=== PATIENT | male | born 1990 | race Caucasian/White ===

== ENCOUNTER 2022-06-12 22:21 | Inpatient (IN) | payer BC, OTHER, SELFPAY ==
[2022-06-12 22:28] VITALS: BP 144/91; PULSE 57; RESP 16; TEMP 36.6; O2SAT 96; BMI 25.8
[2022-06-12 22:49] LABS: Appearance Urine Clear; Color Urine Yellow; Glucose Urine UA Negative (Negative); Leukocyte Esterase Urine Negative (Negative); Nitrite Urine Negative (Negative); PH 7.5 (5.0-9.0); Specific Gravity - Urine 1.015 (1.005-1.025); Urine Blood Negative (Negative); Urine Ketones Negative (Negative); Urine Protein Negative (Neg-Trace)
--- NOTE | 2022-06-12 22:49 | ED.PSYCH ---
HPI - Psych General Chief Complaint: Psychiatric Symptoms Stated Complaint: SI with Plan Time Seen by Provider: 06/12/22 22:48 Source: patient Mode of arrival: EMS Limitations: no limitations History of Present Illness HPI Narrative: Patient history of depression or any medication a section 12 by [facility] for making suicidal statement endorsing suicidal ideation without plan and intent at this time. Patient girlfriend called crisis for help. Seen by N in community. Patient writing on his left forearm with a knife forget me patient says that he does not have any interest in his life and struggling for some time has not seen at the psychiatrist's and is not on any medication Related Data Home Medications Medication Instructions Recorded Confirmed No Known Home Meds 06/12/22 06/12/22 Allergies Allergy/AdvReac Type Severity Reaction Status Date / Time No Known Allergies Allergy Verified 06/12/22 22:25 Review of Systems Review of Systems: Yes all other systems are reviewed and are negative [facility] Social History Social History Advance Directives: No Advance Directives Information Provided: Yes Physical Exam Vital Signs: Vital Signs: Last Vital Signs Temp 97.8 F 06/12/22 23:06 Pulse 61 06/12/22 23:06 Resp 16 06/12/22 23:06 BP 129/92 H 06/12/22 23:06 Pulse Ox 100 06/12/22 23:06 O2 Del Method 06/12/22 23:06 BMI result Body Mass Index 25.8 Appearance: Alert. Oriented X3. No acute distress. Eyes: PERRLA, No Nystagmus ENT: Pharynx normal. Oral Mucosa moist Neck: Normal inspection. Neck supple. CVS: Normal heart rate and rhythm. Pulses normal. Respiratory: No respiratory distress. Equal air entry bilateral, no wheezing/rales/rhonchi Abdomen: Soft and nontender. Bowel sounds are present, no mass palpable, no CVA tenderness Skin: Skin warm and dry. Normal skin color. Normal skin turgor. Extremities: No lower extremity edema. No calf tenderness psych; looks depressed, suicidal feeling with no plan, no HI, no hallucinations or delusions Neuro: Oriented X 3. No motor deficit. No sensory deficit.No cerebellar signs , cranial nerves II-XII intact MDM - Psych MDM Narrative Medical decision making narrative: Patient seen by crisis in community Section 12 for depression with suicidal ideation for inpatient psych placement Differential Diagnosis Differential diagnosis: Likely suicidal ideation and depression Lab Data Attestation: I reviewed the patient's lab results. Result diagrams: 06/12/22 23:14 06/12/22 22:45 Labs: Lab Results 06/12/22 06/12/22 06/12/22 Range/Units 22:36 22:36 22:36 WBC (4.8-10.8) X10*3/uL RBC (4.60-5.80) X10*6/uL Hgb (14.0-18.0) g/dl Hct (42.0-52.0) % MCV (80.0-98.0) fL MCH (27.0-33.0) pg MCHC (31.0-36.0) g/dl RDW (11.0-16.0) % Plt Count (160-400) X10*3/uL MPV (9.4-12.4) fL Immature Gran % (Auto) (0.0-0.4) % Neut % (Auto) (45-73) % Lymph % (Auto) (20-40) % [place] % (Auto) (2-11) % Eos % (Auto) (0-4) % Baso % (Auto) (0-2) % Lymph # (Auto) (1.2-4.9) X10*3/uL [place] # (Auto) (0.1-1.2) X10*3/uL Eos # (Auto) (0.0-0.4) X10*3/uL Baso # (Auto) (0.0-0.2) X10*3/uL Abs Immat Gran (auto) (0.00-0.03) X10*3/uL Absolute Neuts (auto) (2.0-8.3) x10*3/uL Absolute Nucleated RBC (0.0-0.012) X10*3/uL Nucleated RBC % (auto) (0.0-0.2) /100WBC Sodium (135-145) mmol/L Potassium (3.3-5.1) mmol/L Chloride (96-108) mmol/L Carbon Dioxide (22-29) mmol/L Anion Gap (12-20) BUN (9-16) mg/dL Creatinine (0.5-1.4) mg/dL Estim Creat Clear Calc Estimated GFR Random Glucose (60-115) mg/dL Calcium (8.4-10.2) mg/dL Total Bilirubin (0.0-1.0) mg/dL AST (5-37) U/L ALT (0-40) U/L Alkaline Phosphatase (39-117) U/L Total Protein (6.5-8.0) g/dL Albumin (3.5-5.0) g/dL Urine Color Yellow Urine Appearance Clear Urine pH 7.5 (5.0-9.0) Ur Specific [place] 1.015 (1.005-1.025) Urine Protein Negative (Neg-Trace) mg/dL Urine Glucose (UA) Negative (Negative) mg/dL Urine Ketones Negative (Negative) mg/dL Urine Blood Negative (Negative) Urine Nitrite Negative (Negative) Ur Leukocyte Esterase Negative (Negative) Salicylates (15-30) mg/dL Urine Opiates Screen Not Detected (Not Detect) Urine Fentanyl Screen Not Detected (Not Detect) Acetaminophen (<30) mcg/mL Ur Barbiturates Screen Not Detected (Not Detect) Ur Phencyclidine Scrn Not Detected (Not Detect) Ur Amphetamines Screen Not Detected (Not Detect) U Benzodiazepines Scrn Not Detected (Not Detect) Urine Cocaine Screen Not Detected (Not Detect) U Marijuana (THC) Screen POSITIVE H (Not Detect) Ethyl Alcohol mg/dL COVID-19 (TREVER) Negative (Negative) COVID-19 Clin Com See Note 06/12/22 06/12/22 06/12/22 Range/Units 22:45 22:45 23:14 WBC 6.1 (4.8-10.8) X10*3/uL RBC 4.94 (4.60-5.80) X10*6/uL Hgb 16.2 (14.0-18.0) g/dl Hct 46.4 (42.0-52.0) % MCV 93.9 (80.0-98.0) fL MCH 32.8 (27.0-33.0) pg MCHC 34.9 (31.0-36.0) g/dl RDW 13.2 (11.0-16.0) % Plt Count 322 (160-400) X10*3/uL MPV 9.3 L (9.4-12.4) fL Immature Gran % (Auto) 0.2 (0.0-0.4) % Neut % (Auto) 73.6 H (45-73) % Lymph % (Auto) 15.2 L (20-40) % [place] % (Auto) 9.5 (2-11) % Eos % (Auto) 0.7 (0-4) % Baso % (Auto) 0.8 (0-2) % Lymph # (Auto) 0.9 L (1.2-4.9) X10*3/uL [place] # (Auto) 0.6 (0.1-1.2) X10*3/uL Eos # (Auto) 0.0 (0.0-0.4) X10*3/uL Baso # (Auto) 0.1 (0.0-0.2) X10*3/uL Abs Immat Gran (auto) 0.01 (0.00-0.03) X10*3/uL Absolute Neuts (auto) 4.5 (2.0-8.3) x10*3/uL Absolute Nucleated RBC 0.000 (0.0-0.012) X10*3/uL Nucleated RBC % (auto) 0.0 (0.0-0.2) /100WBC Sodium 140 (135-145) mmol/L Potassium 4.6 (3.3-5.1) mmol/L Chloride 103 (96-108) mmol/L Carbon Dioxide 27 (22-29) mmol/L Anion Gap 15 (12-20) BUN 9 (9-16) mg/dL Creatinine 0.94 (0.5-1.4) mg/dL Estim Creat Clear Calc 112.8 Estimated GFR > 60 Random Glucose 94 (60-115) mg/dL Calcium 9.8 (8.4-10.2) mg/dL Total Bilirubin 0.8 (0.0-1.0) mg/dL AST 18 (5-37) U/L ALT 11 (0-40) U/L Alkaline Phosphatase 61 (39-117) U/L Total Protein 7.8 (6.5-8.0) g/dL Albumin 4.8 (3.5-5.0) g/dL Urine Color Urine Appearance Urine pH (5.0-9.0) Ur Specific [place] (1.005-1.025) Urine Protein (Neg-Trace) mg/dL Urine Glucose (UA) (Negative) mg/dL Urine Ketones (Negative) mg/dL Urine Blood (Negative) Urine Nitrite (Negative) Ur Leukocyte Esterase (Negative) Salicylates < 5.0 L (15-30) mg/dL Urine Opiates Screen (Not Detect) Urine Fentanyl Screen (Not Detect) Acetaminophen < 1 (<30) mcg/mL Ur Barbiturates Screen (Not Detect) Ur Phencyclidine Scrn (Not Detect) Ur Amphetamines Screen (Not Detect) U Benzodiazepines Scrn (Not Detect) Urine Cocaine Screen (Not Detect) U Marijuana (THC) Screen (Not Detect) Ethyl Alcohol < 10 mg/dL COVID-19 (TREVER) (Negative) COVID-19 Clin Com Discharge Plan Discharge Clinical Impression: Suicidal ideation, Depression Patient Disposition: Still a Patient Prescriptions: No Action No Known Home Meds
[2022-06-12 23:01] LABS: COVID-19 Test Negative (Negative)
[2022-06-12 23:06] VITALS: BP 129/92; PULSE 61; RESP 16; TEMP 36.6; O2SAT 100
[2022-06-12 23:07] LABS: Amphetamine Screen Urine Not Detected (Not Detect); Barbiturates, Urine Not Detected (Not Detect); Benzodiazepines Screen Urine Not Detected (Not Detect); Cannabinoid Screen Urine POSITIVE (Not Detect); Cocaine Screen Urine Not Detected (Not Detect); Fentanyl, urine Not Detected (Not Detect); Opiate Screen Urine Not Detected (Not Detect); Phencyclidine Screen Urine Not Detected (Not Detect)
[2022-06-12 23:08] LABS: Ethanol < 10 mg/dL
[2022-06-12 23:12] LABS: Alanine Aminotransferase 11 U/L (0-40); Albumin Level 4.8 g/dL (3.5-5.0); Alkaline Phosphatase 61 U/L (39-117); Anion Gap 15 (12-20); Aspartate Amino Transferase 18 U/L (5-37); Bilirubin Total 0.8 mg/dL (0.0-1.0); Blood Urea Nitrogen 9 mg/dL (9-16); Calcium 9.8 mg/dL (8.4-10.2); Carbon Dioxide 27 mmol/L (22-29); Chloride 103 mmol/L (96-108); Creatinine Clr Calc Pharmacy 112.8; Estimated Glomerular Filt Rate > 60; Glucose Random 94 mg/dL (60-115); Potassium 4.6 mmol/L (3.3-5.1); Sodium 140 mmol/L (135-145); Total Protein 7.8 g/dL (6.5-8.0)
[2022-06-12 23:20] LABS: Basophils Absolute Auto 0.1 X10*3/uL (0.0-0.2); Basophils Percent Auto 0.8 % (0-2); Eosinophils Percent Auto 0.7 % (0-4); Hematocrit 46.4 % (42.0-52.0); Hemoglobin 16.2 g/dl (14.0-18.0); Imm Gran Abs Auto 0.01 X10*3/uL (0.00-0.03); Imm Gran Pct Auto 0.2 % (0.0-0.4); Lymphocytes Absolute Auto 0.9 X10*3/uL (1.2-4.9); Lymphocytes Percent Auto 15.2 % (20-40); Mean Corpuscular HGB Conc 34.9 g/dl (31.0-36.0); Mean Corpuscular Hemoglobin 32.8 pg (27.0-33.0); Mean Corpuscular Volume 93.9 fL (80.0-98.0); Mean Platelet Volume 9.3 fL (9.4-12.4); Monocytes Absolute Auto 0.6 X10*3/uL (0.1-1.2); Monocytes Percent Auto 9.5 % (2-11); Neutrophils Absolute Auto 4.5 x10*3/uL (2.0-8.3); Neutrophils Percent Auto 73.6 % (45-73); Platelet Count 322 X10*3/uL (160-400); Red Blood Count 4.94 X10*6/uL (4.60-5.80); Red Cell Distribution Width 13.2 % (11.0-16.0); White Blood Count 6.1 X10*3/uL (4.8-10.8)
[2022-06-12 23:24] LABS: MANUAL DIFF FLAG NO
[2022-06-13 01:31] LABS: Acetaminophen LAB < 1 mcg/mL (<30); Salicylate < 5.0 mg/dL (15-30)
--- NOTE | 2022-06-13 07:04 | PC.NURSE ---
Patient slept through the night, no distress observed/reported, patient calm and quiet, patient was assessed by BHN in the community, disposition pending, patient will be revaluated by BHN, behavior appropriate, medication rec completed/patient is currently not on any home medication, will continue to monitor.
--- NOTE | 2022-06-13 09:54 | PC.NURSE ---
Pt significant other at bedside, states pt is getting agitated. BHN re-evaluating at this time
[2022-06-13] MEDS: LORazepam 1 MG TABLET PO ×2 (10:20→19:54)
[2022-06-13] MEDS: Nicotine 21 MG PATCH.TD24 TRANSDERMA (10:20)
[2022-06-13 10:57] VITALS: BP 115/69; PULSE 47; RESP 16; TEMP 36.6; O2SAT 99
--- NOTE | 2022-06-13 19:54 | PC.NURSE ---
Patient's approached staff on her way out and stated her is anxious d/t her leaving and him being alone. Ativan PO as ordered.
[2022-06-14 02:50] VITALS: BP 120/65; PULSE 68; RESP 17; TEMP 36.6; O2SAT 100
--- NOTE | 2022-06-14 05:34 | PC.NURSE ---
Patient slept through the night, no distress observed/reported, behavior non concerning, medication compliant, disposition per [facility] is section 12 inpatient bed search, VSS, will continue to monitor.
--- NOTE | 2022-06-14 07:13 | PC.NURSE ---
patient appears to remain asleep at present respirations are even and unlabored patient appears in no distress
--- NOTE | 2022-06-14 11:45 | PC.NURSE ---
PT SLEEPING IN HIS ROOM AT THIS TIME, RESP AND NONLABOURED. WCMAGGY.
[2022-06-14 13:34] VITALS: BP 145/73; PULSE 70; RESP 16; TEMP 36.6; O2SAT 98
--- NOTE | 2022-06-14 18:04 | PC.NURSE ---
INPT BED SEARCH, BHN WILL CHECK BACK IN WITH PT TOMORROW.
[2022-06-14] MEDS: LORazepam 1 MG TABLET PO (23:12)
--- NOTE | 2022-06-15 04:56 | PC.NURSE ---
Patient slept through the night, no distress observed/reported, behavior non concerning, medication compliant, Ativan 1 mg PO administered at 2312, disposition per [facility] is section 12 inpatient bed search, VSS, will continue to monitor.
[2022-06-15 05:05] VITALS: BP 115/70; PULSE 52; RESP 16; TEMP 36.6; O2SAT 100
[2022-06-15 13:27] VITALS: BP 128/64; PULSE 60; RESP 16; TEMP 36.6; O2SAT 99
--- NOTE | 2022-06-15 13:29 | PC.NURSE ---
care team at bedside pt aware of plan of care with the claim manager.
--- NOTE | 2022-06-15 15:26 | PC.NURSE ---
assumed care of pt at 1500, pt at desk requesting nicorette gum, pt resting with eyes closed, RR even and unlabored.
[2022-06-15] MEDS: Nicotine Polacrilex 2 MG GUM BUCCAL (16:49)
--- NOTE | 2022-06-15 17:25 | PC.NURSE ---
RN-RN report given.
[2022-06-15 17:50] VITALS: BP 123/84; PULSE 77; TEMP 36.6
[2022-06-15] MEDS: traZODone HCL 50 MG TABLET PO (23:35)
--- NOTE | 2022-06-16 | ECG_ITS ---
Test Reason : CHECK QTC Blood Pressure : / mmHG Vent. Rate : 049 BPM Atrial Rate : 049 BPM P-R Int : 170 ms QRS Dur : 102 ms QT Int : 394 ms P-R-T Axes : 041 077 041 degrees QTc Int : 355 ms Sinus bradycardia with sinus arrhythmia Otherwise normal ECG No previous ECGs available Referred By: Penelope Mahoney Electronically Signed By:LYNNE BURROWS MD
--- NOTE | 2022-06-16 01:30 | PC.ADMIT ---
A Fijian-speaking single male aged aged 31 years was [facility] at 1745 following referral from [facility] and N. Pt denies previous psychiatric admissions and says has not been inpatient for treatment of substance or Etoh abuse. Pt was assessed by [facility] crisis in his apartment after his former girlfriend called secondary to pt endorsing suicidal ideation with intent but no plan and engaging in self-harm by cutting self in left forearm with a knife forming the words Forget Me . On 06/12/22 t was found in his basement apartment naked and intoxicated with a knife and had stated he wished to end his life in quickest way possible. Pt denied current SI/HI, AH/VH, anxiety and depression. Pt denies pain and says has no medical issues. Pt said had in the past 3-4 weeks he had broken up with his girlfriend and the mother of his two boys ages 4 and 12 years. GF had reported pt had made statements that nobody cares about me and the world would be better off without me . Pt has a history of a previous suicide attempt involving O/D of pills. Pt has family in [place] but no close connections here other than ex-GF and children. Pt is employed locally at [employer] and reports working second shift is affecting his sleep. Pt says has difficulty falling asleep, and frequent awakening. Pt says has no medical issues at this time and denies withdrawal symptoms. Pt has no psychiatrist, therapist and says is unsure of the name of his PCP. Pt said would like providers and is open to taking medications. [id number] done, admission orders obtained, treatment plan and safety tool are done. Pt is resting in room on 15 minute safety checks at this time.
[2022-06-16 08:11] VITALS: BP 143/89; PULSE 53; RESP 18; TEMP 36.4; O2SAT 98
[2022-06-16 09:31] LABS: Estimated Average Glucose 100 mg/dL; Hemoglobin A1c % 5.1 %
[2022-06-16 09:37] LABS: Cholesterol 154 mg/dL; HDL Cholesterol 51 mg/dL; LDL Cholesterol Calculated 89 mg/dl; Magnesium 2.1 mg/dL (1.6-2.6); Triglycerides 70 mg/dL
[2022-06-16 09:57] LABS: Free T4 (Free Thyroxine) 0.92 ng/dL (0.71-1.85); Thyroid Stimulating Hormone 0.44 uIU/mL (0.32-4.0)
--- NOTE | 2022-06-16 10:18 | P.HPPS_ITS ---
HPI Date of Service: 06/16/22 Chief Complaint: Depression with SI Sources of Information: patient interviewed, chart reviewed and crisis/core team assessment reviewed HPI Subjective Notes: Hightower Warning, Conditional Voluntary and 3 Day Narrative: Patient is a 31-year-old male with history of moderate depression who presents for worsening depressive symptoms, SI with plan in the face of psychosocial stressors, most recently break-up with girlfriend. Patient reports that he has not had any suicidal thinking for over 10 years. The past few months have been challenging however since he works predominantly at night, sleeps most of the da y and ends up feeling removed from others; patient has 2 children and is on good terms with his ex-, however he does not see his kids nearly as much as he wants to and feels guilty about it. Patient was dating a woman who broke up with him about 3 weeks ago. Patient reports that every day he faces bills, work and feeling alone but cope with it on his own; however after the break-up he felt a significant increase in his sense of loneliness and isolation and started having thoughts about the world would be better off without him. This past week these feelings intensified and this past Wednesday, when he was off work he was alone in his apartment and started drinking alcohol, crying excessively and feeling that no one really cares about him. With a knife he carved the words forget me in his left forearm. His ex called him and he said he did want to talk to her or anybody and hung up the phone. Worried, She called repeatedly and when he did answer she came over and found him intoxicated and with a knife. She then got a hold of 911. Patient said at the time, while intoxicated and in despair he seriously contemplated suicide though he was held back by some ambivalence. Suzanne patient says he is glad that he did not hurt himself and he is glad to be receiving help. He denies any SI. Patient only drinks alcohol occasionally, maybe once a week; no other drug use; denies history of manic type episodes or behaviors; history of childhood trauma, however denies PTSD symptom s. No history of medication trials. Patient agrees to trial of Prozac and would like to initiate therapy post discharge Past Psychiatric History: Suicide attempt when he was 16 years old with overdose of some pills No history of psychiatric hospitalization No history of medication trials Medical Evaluation Reviewed: Yes [facility] Medical History (Updated 06/16/22 @ 13:36 by Alfonzo Yañez MD) MDD (major depressive disorder), recurrent severe, without psychosis Family History: deferred Social History: Born and raised in [place] Graduated high school Had 2 children with a woman; romantic relationship dissolved but she remains a good friend and support, lives locally and patient is still involved with his children The rest of patient's family all live in [place] Currently works at [employer]; likes his job Substance History: No history of abuse Trauma History: Childhood trauma Diagnostics Vital Signs (24Hr): Vital Signs - 24 hr 06/15/22 13:27 06/15/22 17:50 06/15/22 17:50 Temperature 97.9 F 97.8 F 97.8 F Pulse Rate 60 77 77 Respiratory Rate 16 Blood Pressure 128/64 123/84 123/84 Pulse Oximetry 99 Oxygen Delivery Method Room Air 06/16/22 08:11 Temperature 97.6 F Pulse Rate 53 Respiratory Rate 18 Blood Pressure 143/89 H Pulse Oximetry 98 Oxygen Delivery Method Room Air BMI result Body Mass Index 25.8 Labs Results: 06/12/22 23:14 06/12/22 22:45 Labs: Laboratory Results - last 48 hr 06/16/22 06/16/22 08:05 08:05 Estimat Average Glucose 100 Hemoglobin A1c % 5.1 Magnesium 2.1 Triglycerides 70 Cholesterol 154 LDL Cholesterol, Calc 89 HDL Cholesterol 51 TSH 0.44 Free T4 0.92 Meds/Allergies Meds Home Medications Medication Instructions Recorded Confirmed Type No Known Home Meds 06/12/22 06/12/22 History Allergies Allergies Allergy/AdvReac Type Severity Reaction Status Date / Time No Known Allergies Allergy Verified 06/12/22 22:25 Mental Status Exam Mental Status Exam Narrative: Pt is alert and oriented; behavior is cooperative and calm; patient is not in distress; dressed in hospital attire with closely cropped hair cut, adequate hygiene, left hand lacerations with the words forget me carved; mood is described as depressed and affect congruent, tearful; eye contact appropriate; Speech is normal rate, volume and prosody and not pressured; no psychomotor agitation/retardation present; thought process is goal directed; Thought content is on overcoming sadness, anxiety, tx; otherwise pertinent to relevant topics and without any delusional content, paranoid ideations or grandiosity; denies any SI/HI. There is no evidence of perceptual disturbance. Patients insight and judgment are impaired. Assessment & Plan Assessment & Plan (1) MDD (major depressive disorder), recurrent severe, without psychosis: Status: Acute Code(s): F33.2 - Major depressive disorder, recurrent severe without psychotic features Plan Patient is a 31-year-old male with history of moderate depression who presents for worsening depressive symptoms, SI with plan in the face of psychosocial stressors, most recently break-up with girlfriend. Patient has been depressed and anxious for quite some time however symptoms exacerbated when recent girlfriend broke up with him. Patient's suicidality has currently resolved. Patient reports history of keeping all his problems to himself however realizes he needs to talk with someone agrees to therapy. Patient agrees to Prozac. Although intoxicated on and day of incident, patient says he only drinks occasionally otherwise. Despite depression patient has maintained employment and works at a job he enjoys. -examined left forearm and no signs of infection Plan: CV Q 15 minute checks Start Prozac 10 mg for anxiety/depression. Dandy Tender reviewed risks/side effects of this medication patient agrees Social work to help set up aftercare Patient educated on: diagnosis, medication risk/benefits and therapeutic strat egies Informed Consent: understands Reason for continued inpatient stay Substantial Risk for: rapid decompensation
[2022-06-16 10:37] LABS: Folate 12.3 ng/mL (> or = 4.0); Vitamin B12 494 pg/mL (200-900)
[2022-06-16] MEDS: FLUoxetine HCl 10 MG CAPSULE PO (15:03)
[2022-06-16 18:00] VITALS: BP 118/56; PULSE 78; RESP 16; TEMP 36.8; O2SAT 98
[2022-06-16] MEDS: Nicotine Polacrilex 2 MG GUM BUCCAL (22:40)
[2022-06-17] MEDS: FLUoxetine HCl 10 MG CAPSULE PO (08:40)
[2022-06-17 11:35] VITALS: BP 175/81; PULSE 68; RESP 18; TEMP 36.3; O2SAT 96
[2022-06-17] MEDS: Nicotine Polacrilex 2 MG GUM BUCCAL (13:21)
--- NOTE | 2022-06-17 16:49 | HO.PSYCHPN ---
Subjective Subjective Date of Service: 06/17/22 Reason For Visit: Depression with SI Interim History: Patient reports he is feeling much better. He was surprised at himself how easily he was interacting with others in the milieu, talking about things, sharing about his own struggles, something he says he never ever does. He says this is new for me... And shares how much he likes and is grateful for the opportunity to be here. No medication side effects; feels depression is resolved and he is without any SI at all. Patient is sleeping well and eating well. Had a good visit from friend Mental Status Exam Mental Status Exam Narrative: Pt is alert and oriented; behavior is cooperative and calm; patient is not in distress; dressed in hospital attire with closely cropped hair cut, adequate hygiene, left hand lacerations with the words forget me carved; mood is described as better and affect congruent, brighter, calm; eye contact appropriate; Speech is normal rate, volume and prosody and not pressured; no psychomotor agitation/retardation present; thought process is goal directed; Thought content is on overcoming sadness, anxiety, tx; otherwise pertinent to relevant topics and without any delusional content, paranoid ideations or grandiosity; denies any SI/HI. There is no evidence of perceptual disturbance. Patients insight and judgment are improving. Diagnostics Vital Signs (24Hr): Vital Signs - 24 hr 06/16/22 18:00 06/17/22 11:35 Temperature 98.3 F 97.4 F Pulse Rate 78 68 Respiratory Rate 16 18 Blood Pressure 118/56 L 175/81 H Pulse Oximetry 98 96 Oxygen Delivery Method Room Air Room Air BMI result Body Mass Index 25.8 Labs Results: 06/12/22 23:14 06/12/22 22:45 Labs: Laboratory Results - last 48 hr 06/16/22 06/16/22 06/16/22 08:05 08:05 08:05 Estimat Average Glucose 100 Hemoglobin A1c % 5.1 Magnesium 2.1 Triglycerides 70 Cholesterol 154 LDL Cholesterol, Calc 89 HDL Cholesterol 51 Vitamin B12 494 Folate 12.3 TSH 0.44 Free T4 0.92 Medications Medications Current Medications Acetaminophen (Acetaminophen 325 Mg Tablet) 650 mg PO Q6H PRN PRN Reason: Headache/Pain Mild Scale (1-3) Al Hydroxide/Mg Hydroxide (Magnesium Hydrox/Alum Hydrox 30 Ml Oral.Susp) 30 ml PO Q6H PRN PRN Reason: Heartburn/Nausea Fluoxetine HCl (Fluoxetine Hcl 10 Mg Capsule) 10 mg PO DAILY NILAM Last Admin: 06/17/22 08:40 Dose: 10 mg Hydroxyzine HCl (Hydroxyzine Hcl 25 Mg Tablet) 25 mg PO Q6H PRN PRN Reason: Anxiety Magnesium Hydroxide (Milk Of Magnesia 30 Ml Oral.Susp) 30 ml PO DAILY PRN PRN Reason: Constipation Nicotine Polacrilex (Nicotine Polacrilex 2 Mg Gum) 2 mg BUCCAL Q2H PRN PRN Reason: Nicotine Cravings Last Admin: 06/17/22 13:21 Dose: 2 mg Trazodone HCl (Trazodone Hcl 50 Mg Tablet) 50 mg PO BEDTIME PRN PRN Reason: insomnia Allergies Allergies Allergy/AdvReac Type Severity Reaction Status Date / Time No Known Allergies Allergy Verified 06/12/22 22:25 Assessment & Plan Assessment & Plan (1) MDD (major depressive disorder), recurrent severe, without psychosis: Status: Acute Code(s): F33.2 - Major depressive disorder, recurrent severe without psychotic features Plan Patient is a 31-year-old male with history of moderate depression who presents for worsening depressive symptoms, SI with plan in the face of psychosocial stressors, most recently break-up with girlfriend. Patient has been depressed and anxious for quite some time however symptoms exacerbated when recent girlfriend broke up with him. Patient's suicidality has currently resolved. Patient reports history of keeping all his problems to himself however realizes he needs to talk with someone agrees to therapy. Patient agrees to Prozac. Although intoxicated on and day of incident, patient says he only drinks occasionally otherwise. Despite depression patient has maintained employment and works at a job he enjoys. -examined left forearm and no signs of infection 06/17 patient reports that he is feeling much better, no depression no SI; feels more open and able to talk than ever before. While improvement is significant, it is new and patient should remain on the unit another few days to make sure depression truly is abating. Plan: 3 day notice Q 15 minute checks Continue Prozac 10 mg for anxiety/depression. Registered Travel Nurse reviewed risks/side effects of this medication patient agrees Social work to help set up aftercare I spent minutes with the patient and/or on the patient floor today, greater than?50% of which was spent counseling/coordinating care. Patient educated on: diagnosis, medication risk/benefits and therapeutic strategies Informed Consent: understands Reason for contiued inpatient stay Substantial Risk for: rapid decompensation
[2022-06-17 18:32] VITALS: BP 132/81; PULSE 64; RESP 17; TEMP 36.8; O2SAT 98
[2022-06-17] MEDS: traZODone HCL 50 MG TABLET PO (21:40)
[2022-06-18 07:00] VITALS: BMI 24.1
[2022-06-18 08:04] VITALS: BP 122/63; PULSE 55; RESP 16; TEMP 36.3; O2SAT 99
[2022-06-18] MEDS: FLUoxetine HCl 10 MG CAPSULE PO (08:32)
--- NOTE | 2022-06-18 09:45 | HO.PSYCHPN ---
Subjective Subjective Date of Service: 06/18/22 Reason For Visit: Depression with SI Interim History: seen with Turkmen Emiliano (pt speaks Russian well enough, but wanted to make sure nothing was lost in translation) pt remains in good mood, no depression, no SI; he expresses much gratitude for help received and for his experience on the unit. Pt says he feels ready for discharge and is excited to see his kids. He also feels good about continuing tx at partial day program and reiterates how helpful it's been to finally be around people with which he feels comfortable being open. Reviewed side effects, risks of medication regimen which patient ask questions about and understood. Mental Status Exam Mental Status Exam Narrative: Pt is alert and oriented; behavior is cooperative, friendly and calm; patient is not in distress; dressed in hospital attire with closely cropped hair cut, adequate hygiene, left hand lacerations with the words forget me carved; mood is described as good and affect congruent, brighter, calm; eye contact appropriate; Speech is normal rate, volume and prosody and not pressured; no psychomotor agitation/retardation present; thought process is goal directed; Thought content is on continuing with treatment post discharge, seeing his soon and remains pertinent to relevant topics and without any delusional content, paranoid ideations or grandiosity; denies any SI/HI. There is no evidence of perceptual disturbance. Patients insight and judgment are fair and adequate. Diagnostics Vital Signs (24Hr): Vital Signs - 24 hr 06/17/22 11:35 06/17/22 18:32 06/18/22 08:04 Temperature 97.4 F 98.3 F 97.4 F Pulse Rate 68 64 55 Respiratory Rate 18 17 16 Blood Pressure 175/81 H 132/81 122/63 Pulse Oximetry 96 98 99 Oxygen Delivery Method Room Air Room Air Room Air BMI result Body Mass Index 25.8 Labs Results: 06/12/22 23:14 06/12/22 22:45 Labs: Laboratory Results - last 48 hr 06/16/22 06/16/22 08:05 08:05 Vitamin B12 494 Folate 12.3 TSH 0.44 Free T4 0.92 Medications Medications Current Medications Acetaminophen (Acetaminophen 325 Mg Tablet) 650 mg PO Q6H PRN PRN Reason: Headache/Pain Mild Scale (1-3) Al Hydroxide/Mg Hydroxide (Magnesium Hydrox/Alum Hydrox 30 Ml Oral.Susp) 30 ml PO Q6H PRN PRN Reason: Heartburn/Nausea Fluoxetine HCl (Fluoxetine Hcl 10 Mg Capsule) 10 mg PO DAILY NILAM Last Admin: 06/18/22 08:32 Dose: 10 mg Hydroxyzine HCl (Hydroxyzine Hcl 25 Mg Tablet) 25 mg PO Q6H PRN PRN Reason: Anxiety Magnesium Hydroxide (Milk Of Magnesia 30 Ml Oral.Susp) 30 ml PO DAILY PRN PRN Reason: Constipation Nicotine Polacrilex (Nicotine Polacrilex 2 Mg Gum) 2 mg BUCCAL Q2H PRN PRN Reason: Nicotine Cravings Last Admin: 06/17/22 13:21 Dose: 2 mg Trazodone HCl (Trazodone Hcl 50 Mg Tablet) 50 mg PO BEDTIME PRN PRN Reason: insomnia Last Admin: 06/17/22 21:40 Dose: 50 mg Allergies Allergies Allergy/AdvReac Type Severity Reaction Status Date / Time No Known Allergies Allergy Verified 06/12/22 22:25 Assessment & Plan Assessment & Plan (1) MDD (major depressive disorder), recurrent severe, without psychosis: Status: Acute Code(s): F33.2 - Major depressive disorder, recurrent severe without psychotic features Plan Patient is a 31-year-old male with history of moderate depression who presents for worsening depressive symptoms, SI with plan in the face of psychosocial stressors, most recently break-up with girlfriend. Patient has been depressed and anxious for quite some time however symptoms exacerbated when recent girlfriend broke up with him. Patient's suicidality has currently resolved. Patient reports history of keeping all his problems to himself however realizes he needs to talk with someone agrees to therapy. Patient agrees to Prozac. Although intoxicated on and day of incident, patient says he only drinks occasionally otherwise. Despite depression patient has maintained employment and works at a job he enjoys. -examined left forearm and no signs of infection 06/17 patient reports that he is feeling much better, no depression no SI; feels more open and able to talk than ever before. While improvement is significant, it is new and patient should remain on the unit another few days to make sure depression truly is abating. 06/18 pt remains in good mood, no depression, no SI; future oriented, meds working well; sleeping and eating well. Pt has 3 day notice in and feels good and ready for discharge. Patient plans to start partial day program post discharge as well. Patient is not in imminent risk for harm to self or others and as his 3 day notice is coming due he is appropriate for discharge back to the community. Plan: 3 day notice Q 15 minute checks Continue Prozac 10 mg for anxiety/depression. Legal Department Manager reviewed risks/side effects of this medication patient agrees Social work to help set up aftercare I spent minutes with the patient and/or on the patient floor today, greater than?50% of which was spent counseling/coordinating care. Patient educated on: diagnosis, medication risk/benefits and therapeutic strategies Informed Consent: understands Reason for contiued inpatient stay Substantial Risk for: stable for discharge
[2022-06-18 17:10] VITALS: BP 136/86; PULSE 58; TEMP 36.8
[2022-06-18] MEDS: traZODone HCL 50 MG TABLET PO (23:00)
--- NOTE | 2022-06-19 09:23 | P.DS_ITS ---
DS: Providers Provider Date of Service: 06/19/22 Date of admission: 06/15/22 16:55 Date of discharge: 06/19/22 Primary care physician: Nonstaff Physician Attending physician on admission: Alfonzo Yañez Attending physician on discharge: Alfonzo Yañez DS: Diagnosis Discharge Diagnosis (1) MDD (major depressive disorder), recurrent severe, without psychosis: Status: Acute DS: Medications Discharge Medications Home Medications: Previous Rx's Medication Instructions Recorded fluoxetine 10 mg capsule 10 mg PO DAILY 30 days #30 caps 06/19/22 nicotine (polacrilex) 2 mg gum 2 mg buccal Q2H PRN Nicotine 06/19/22 Cravings 30 days #100 ea trazodone 50 mg tablet 50 mg PO BEDTIME PRN insomnia 30 06/19/22 days #30 tabs Mental Status Exam Mental Status Exam Narrative: Pt is alert and oriented; behavior is cooperative, friendly and calm; patient is not in distress; dressed in casual attire with closely cropped hair cut, adequate hygiene, left forearm (not hand) lacerations with the words forget me carved; mood is described as good and affect congruent, bright, calm; eye contact appropriate; Speech is normal rate, volume and prosody and not pressured; no psychomotor agitation/retardation present; thought process is goal directed; Thought content is on continuing with treatment post discharge, seeing his soon and remains pertinent to relevant topics and without any delusional content, paranoid ideations or grandiosity; denies any SI/HI. There is no evidence of perceptual disturbance. Patients insight and judgment are fair and adequate. Data Data Completed and Pending Completed studies during hospitalization [Text1]: 06/12/22 06/12/22 06/12/22 22:36 22:36 22:36 WBC RBC Hgb Hct MCV MCH MCHC RDW Plt Count MPV Immature Gran % (Auto) Neut % (Auto) Lymph % (Auto) [place] % (Auto) Eos % (Auto) Baso % (Auto) Lymph # (Auto) [place] # (Auto) Eos # (Auto) Baso # (Auto) Abs Immat Gran (auto) Absolute Neuts (auto) Absolute Nucleated RBC Nucleated RBC % (auto) Sodium Potassium Chloride Carbon Dioxide Anion Gap BUN Creatinine Estim Creat Clear Calc Estimated GFR Random Glucose Estimat Average Glucose Hemoglobin A1c % Calcium Magnesium Total Bilirubin AST ALT Alkaline Phosphatase Total Protein Albumin Triglycerides Cholesterol LDL Cholesterol, Calc HDL Cholesterol Vitamin B12 Folate TSH Free T4 Urine Color Yellow Urine Appearance Clear Urine pH 7.5 Ur Specific [place] 1.015 Urine Protein Negative Urine Glucose (UA) Negative Urine Ketones Negative Urine Blood Negative Urine Nitrite Negative Ur Leukocyte Esterase Negative Salicylates Urine Opiates Screen Not Detected Urine Fentanyl Screen Not Detected Acetaminophen Ur Barbiturates Screen Not Detected Ur Phencyclidine Scrn Not Detected Ur Amphetamines Screen Not Detected U Benzodiazepines Scrn Not Detected Urine Cocaine Screen Not Detected U Marijuana (THC) Screen POSITIVE H Ethyl Alcohol COVID-19 (TREVER) Negative COVID-19 Clin Com See Note 06/12/22 06/12/22 06/12/22 22:45 22:45 23:14 WBC 6.1 RBC 4.94 Hgb 16.2 Hct 46.4 MCV 93.9 MCH 32.8 MCHC 34.9 RDW 13.2 Plt Count 322 MPV 9.3 L Immature Gran % (Auto) 0.2 Neut % (Auto) 73.6 H Lymph % (Auto) 15.2 L [place] % (Auto) 9.5 Eos % (Auto) 0.7 Baso % (Auto) 0.8 Lymph # (Auto) 0.9 L [place] # (Auto) 0.6 Eos # (Auto) 0.0 Baso # (Auto) 0.1 Abs Immat Gran (auto) 0.01 Absolute Neuts (auto) 4.5 Absolute Nucleated RBC 0.000 Nucleated RBC % (auto) 0.0 Sodium 140 Potassium 4.6 Chloride 103 Carbon Dioxide 27 Anion Gap 15 BUN 9 Creatinine 0.94 Estim Creat Clear Calc 112.8 Estimated GFR > 60 Random Glucose 94 Estimat Average Glucose Hemoglobin A1c % Calcium 9.8 Magnesium Total Bilirubin 0.8 AST 18 ALT 11 Alkaline Phosphatase 61 Total Protein 7.8 Albumin 4.8 Triglycerides Cholesterol LDL Cholesterol, Calc HDL Cholesterol Vitamin B12 Folate TSH Free T4 Urine Color Urine Appearance Urine pH Ur Specific [place] Urine Protein Urine Glucose (UA) Urine Ketones Urine Blood Urine Nitrite Ur Leukocyte Esterase Salicylates < 5.0 L Urine Opiates Screen Urine Fentanyl Screen Acetaminophen < 1 Ur Barbiturates Screen Ur Phencyclidine Scrn Ur Amphetamines Screen U Benzodiazepines Scrn Urine Cocaine Screen U Marijuana (THC) Screen Ethyl Alcohol < 10 COVID-19 (TREVER) COVID-19 Clin Com 06/16/22 06/16/22 06/16/22 08:05 08:05 08:05 WBC RBC Hgb Hct MCV MCH MCHC RDW Plt Count MPV Immature Gran % (Auto) Neut % (Auto) Lymph % (Auto) [place] % (Auto) Eos % (Auto) Baso % (Auto) Lymph # (Auto) [place] # (Auto) Eos # (Auto) Baso # (Auto) Abs Immat Gran (auto) Absolute Neuts (auto) Absolute Nucleated RBC Nucleated RBC % (auto) Sodium Potassium Chloride Carbon Dioxide Anion Gap BUN Creatinine Estim Creat Clear Calc Estimated GFR Random Glucose Estimat Average Glucose 100 Hemoglobin A1c % 5.1 Calcium Magnesium 2.1 Total Bilirubin AST ALT Alkaline Phosphatase Total Protein Albumin Triglycerides 70 Cholesterol 154 LDL Cholesterol, Calc 89 HDL Cholesterol 51 Vitamin B12 494 Folate 12.3 TSH 0.44 Free T4 0.92 Urine Color Urine Appearance Urine pH Ur Specific [place] Urine Protein Urine Glucose (UA) Urine Ketones Urine Blood Urine Nitrite Ur Leukocyte Esterase Salicylates Urine Opiates Screen Urine Fentanyl Screen Acetaminophen Ur Barbiturates Screen Ur Phencyclidine Scrn Ur Amphetamines Screen U Benzodiazepines Scrn Urine Cocaine Screen U Marijuana (THC) Screen Ethyl Alcohol COVID-19 (TREVER) COVID-19 Clin Com DS: Summary Hospital Course Hospital Course: Patient is a 31-year-old male with history of moderate depression who presents for worsening depressive symptoms, SI with plan in the face of psychosocial stressors, most recently break-up with girlfriend.? Patient has been depressed and anxious for quite some time however symptoms exacerbated when recent girlfriend broke up with him.? Patient's suicidality has currently resolved.? Patient reports history of keeping all his problems to himself however realizes he needs to talk with someone agrees to therapy.? P atient agrees to Prozac.? Although intoxicated on and day of incident, patient says he only drinks occasionally otherwise.? Despite depression patient has maintained employment and works at a job he enjoys. -examined left forearm and no signs of infection On admission, patient still had some depressed feelings but SI resolved. He was cooperative and pleasant and engaged in treatment. Patient agreed to start Prozac which was well tolerated and helpful. Patient's mood significantly improved and he reported all depression resolved. He continued to express gratitude for help received and for his experience on the unit, feeling that he has been able, for the 1st time, to talk about his feelings with other people, a significantly relieving experience for him. Patient placed a 3 day notice. He was sleeping and eating well, appropriate with peers and staff and continually demonstrating good behavioral and impulse control. Patient was future oriented, excited to see his children and also to return to work. He also agreed to attend partial day program post discharge to continue the experience of group therapy which he feels has been very beneficial; therapy appointment also made and patient is eager to engage. Patient says he will certainly be able to reach out for help if he ever feels unsafe again. Patient appropriate to continue treatment in the community. He is not in imminent risk of harm to self or others; as 3 day notice is coming due, his request for discharge honored. Time spent discussing smoking cessation with patient: 3 to 10 minutes Status at Discharge Functional status at discharge: independent ambulation Overall status at discharge: patient is back to baseline Time Spent with Patient Time attestation: Total time spent providing and/or coordinating discharge services: Time spent: Less than 30 minutes Discharge Plan Discharge Anticipated Discharge Date/Time: 06/19/22 13:00 Patient Disposition: Home, Self-Care Discharge Diagnosis: MDD, recurrent, severe, in full remission Referrals: [facility] [Other] - 1 Week [facility] Partial Hospitalization Program [Other] - 07/08/22 8:00 am (Patience Lopez from Partial Hospitalization Program will call and follow-up on 06/22/22 to discuss program.) Physician,Nonstaff [Primary Care Provider] - 1 Week Discharge Medications: New nicotine (polacrilex) 2 mg Gum 2 mg buccal Q2H PRN (Reason: Nicotine Cravings) 30 Days Qty: 100 0RF fluoxetine 10 mg Capsule 10 mg PO DAILY 30 Days Qty: 30 1RF trazodone 50 mg Tablet 50 mg PO BEDTIME PRN (Reason: insomnia) 30 Days Qty: 30 1RF Discharge Orders: Discharge Order (Routine); Ordered 06/19/22 Ordered By: Alfonzo Yañez Diet: Regular diet Activity on Discharge: As tolerated Stand Alone Forms: Patient Portal Discharge page Care Plan Goals: Maintain mood and safe behaviors Take medications as prescribed Practice coping skills Continue with outpatient providers and reach out to them as needed Health Concerns: Mood stability and behaviors Plan of Treatment: Follow up with your Psychiatric provider and other outpatient providers regarding above concerns Take medications as prescribed Assessment: Risk assessment at time of discharge:? Patient was interviewed prior to discharge and found to be fully oriented and without any SI or HI. Patient has insight and demonstrates good judgment in terms of wanting to pursue treatment. Patient is not in imminent risk of harm to self or others and has a safety plan that includes presenting to the closest ER or calling 911 if feeling unsafe.? Patient has been observed closely by nursing and unit staff throughout admission; patient has not engaged in any behaviors that suggest dangerousness to self or others and has demonstrated appropriate behaviors and impulse control
[2022-06-19] MEDS: FLUoxetine HCl 10 MG CAPSULE PO (09:47)
[2022-06-19 09:50] VITALS: BP 127/60; PULSE 69; RESP 18; TEMP 36.4; O2SAT 99
== END 2022-06-19 13:15 | disposition home or self-care (01) | DRG 751 ==
LOC: HO.ED 06-15 14:57 → HO.PM5 06-15 17:10
PROVIDERS: Admitting Provider Clinical Nurse Specialist Psychiatric/Mental Health, Adult; Emergency Provider Internal Medicine; Visit Provider Psychiatry & Neurology Psychiatry
DX: F33.2 Major depressive disorder, recurrent severe without psychotic features (principal); R45.851 Suicidal ideations; F17.210 Nicotine dependence, cigarettes, uncomplicated; Z20.822 Contact with and (suspected) exposure to COVID-19; Z71.6 Tobacco abuse counseling
CPT/HCPCS: 36415; 80053; 80061; 80143; 80179; 80307; 81003; 82077; 82607; 82746; 83036; 83735; 84439; 84443; 85025; 87635; 93005; 99285

== ENCOUNTER 2022-07-24 08:45 | Outpatient (RCR) | payer BC, SELFPAY ==
--- NOTE | 2022-07-13 09:51 | HO.PS.ADMBH ---
HPI Date of Service: 07/13/22 Chief Complaint: depression,anxiety Sources of Information: patient interviewed, chart reviewed and crisis/core team assessment reviewed HPI Medical Problems Affecting Mental Status: No Narrative: Patient is a 31-year-old bilingual , single male, referred to [facility] as a step-down from inpatient level of care at [facility]. Patient was hospitalized on section 12 on M5 from 06/15/22 - 06/19/22 due to depression sx with SI. Precipitant to this was breakup of a relationship, and working nights. He had been drinking at home, and became suicidal. Please refer to clinician integrated assessment for full details. Has long history of passive SI, over 10 years. His mother and sisters live in [place], whom he feels close to. He also finds working nights to be isolating. He is currently staying with his children and their mother. Has two sons, ages 12 and 4. He denies any SI at this time, no thoughts to harm himself in any way. He reports that he feels safe. He was prescribed psychiatric medication for the first time during recent hospitalization, fluoxetine 10mg daily, and trazodone 50 at bedtime for sleep. He says his sleep has improved, and he feels less depressed. Past Psychiatric History: Suicide attempt when he was 16 years old with overdose of some pills Inpatient 05/2022 for SI. No previous history of psychiatric hospitalization No history of medication trials Medical Evaluation Reviewed: Yes [facility] Medical History (Updated 07/13/22 @ 20:40 by Ayla Harrison) MDD (major depressive disorder), recurrent severe, without psychosis Family History: Mother: depression, high cholesterol, hypertension Social History: Born and raised in [place] Graduated high school. Had 2 children with a woman; romantic relationship dissolved but she remains a good friend and support, lives locally and patient is still involved with his children The rest of patient's family all live in [place] Currently works at [employer]; likes his job. Substance History: Uses alcohol on weekends, cannabis at night (for sleep). No concerns reported Trauma History: Childhood trauma Meds/Allergies Allergies Allergies Allergy/AdvReac Type Severity Reaction Status Date / Time No Known Allergies Allergy Verified 06/12/22 22:25 Mental Status Exam Mental Status Exam Narrative: Well developed, well nourished male, in NAD. Normal ambulation, posture. No tics/tremors, no abnormal movements. No perceptual disturbances noted. Patient Appearance: Well Grooomed and Appropriate Patient Orientation: Person, Place, Time and Situation Level of Consciousness: Appropriate and Alert Patient Behavior: Appropriate, Cooperative and Good Eye Contact Mood Description: Calm and Appropriate Affect Description: Anxious Patient Cognition Impaired: No Ability to Follow Directions: Good Speech Pattern: Clear Memory Description: Intact Hallucinations: None Delusions: Not Present Thought Process: Intact Thought Content: positive for Intact Depressive Symptoms: Increased Anxiety, Difficulty Sleeping, Loss of Int. in Activity, Hopelessness and Increased Fatigue Judgement: Fair Assessment & Plan Assessment & Plan (1) MDD (major depressive disorder), recurrent severe, without psychosis: Status: Acute Code(s): F33.2 - Major depressive disorder, recurrent severe without psychotic features Assessment and Plan: Patient reports a long history of anxiety and depression, passive SI, over past 10 years. SA age 16 by overdose with mother's medications. Recently hospitalized after SI gesture, while intoxicated. Precipitant was breakup of relationship. Patient was recently started on fluoxetine and trazodone, with positive effect. Denies any current SI, either active or passive, states that he feels safe. He is satisfied with current medications. (2) LEIGHA (generalized anxiety disorder): Status: Acute Code(s): F41.1 - Generalized anxiety disorder Plan 1. Continue with current [facility] plan of care. 2. Continue with current medication regimen. 3. Follow-up as per protocol. Patient educated on: diagnosis, medication risk/benefits and therapeutic strategies Informed Consent: understands Reason for continued partial hosp. stay Substantial Risk for: harm to self and inability to function Certification I certify that partial hospital treatment is medically necessary due to the symptoms and problems resulting from the patient's mental illness and the failure to treat the patient at the partial hospital level of care would likely result in the patient requiring inpatient psychiatric care which could not be prevented at a less intensive level of care.
[2022-07-13 14:05] VITALS: BP 118/60; PULSE 68; RESP 16; TEMP 36.9
[2022-07-13 14:09] LABS: Amphetamine Screen Urine Not Detected (Not Detect); Barbiturates, Urine Not Detected (Not Detect); Benzodiazepines Screen Urine Not Detected (Not Detect); Cannabinoid Screen Urine POSITIVE (Not Detect); Cocaine Screen Urine Not Detected (Not Detect); Fentanyl, urine Not Detected (Not Detect); Opiate Screen Urine Not Detected (Not Detect); Phencyclidine Screen Urine Not Detected (Not Detect)
[2022-07-13 14:22] VITALS: BMI 24.7
--- NOTE | 2022-07-14 11:37 | PC.ADMIT ---
Admission Note: Patient admitted to [facility] on Wednesday07/13/2022. Referral from in-patient at [facility]. Patient is a 31 year old bilingual man. Patient was admitted in-patient for worsening depression and SI with plan. Today patient denies SI with no plan and no intent. Prior to in-patient stay patient had broken up with his girlfriend who he refers to as his and with whom he has two children. Patient is now living with his and he reports things are improved. 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 Patient denies substance abuse. He does report he drinks occasionally states one to two beers on weekends. Patient reports he vapes marijuana less than daily for sleep. Patient is well groomed, cooperative and able to concentrate and attentive. Patient's mood is stable and affect appropriate. Patient is goal oriented and states [facility] will provide support and develop healthy coping skills. Patient denies HI and SI with no intent or plan.
--- NOTE | 2022-07-16 14:46 | HO.PHPIOP ---
referral was made to [facility] for providers
--- NOTE | 2022-07-17 10:02 | HO.PHPIOP ---
The clients case was opened in treatment team
--- NOTE | 2022-07-20 11:04 | PC.NURSE ---
Teo left staff a message today stating that he will be out today as his sister is visiting him from [place]. Stated he is feeling good today. [facility] staff is aware.
--- NOTE | 2022-07-21 14:54 | P.PNPSP_ITS ---
Subjective Subjective Date of Service: 07/21/22 Reason For Visit: depression,anxiety Medical Problems Affecting Mental Status: No Interim History: Reports continues with some depression, anxiety. Self-conscious, feels others are treating him differently because of recent hospitalization. States some improvement, I don't have dread in the morning any more . No SI/HI, no safety concerns. Sleep, appetite within normal limits. Medication Compliance: Yes Side effects from medications: No Attending Groups: Yes Review of Systems Acute medical concerns: No Medical Review of Systems: unchanged Review of Systems Review of Systems Yes all other systems are reviewed and are negative Constitutional: Reports no additional constitutional complaints Mental Status Exam Mental Status Exam Narrative: NAD Patient Appearance: Well Grooomed Patient Orientation: Person, Place and Time Level of Consciousness: Appropriate Patient Behavior: Appropriate, Cooperative and Good Eye Contact Mood Description: Depressed and Anxious Affect Description: Depressed and Anxious Patient Cognition Impaired: No Ability to Follow Directions: Good Speech Pattern: Clear and Appropriate Memory Description: Intact Hallucinations: None Delusions: Not Present Thought Process: Intact Thought Content: positive for Intact Depressive Symptoms: Increased Anxiety, Diff. Making Decisions, Increased Irri tability, Low Self Esteem and Difficulty Concentrating Judgement: Fair Diagnostics Vital Signs (24Hr): BMI result Body Mass Index 24.7 Assessment & Plan Assessment & Plan (1) MDD (major depressive disorder), recurrent severe, without psychosis: Status: Acute Code(s): F33.2 - Major depressive disorder, recurrent severe without psychotic features Assessment and Plan: Reports continues with some depression, anxiety. States that he has been struggling with symptoms, although the fluoxetine is helping. Self-conscious. Went to [place] with partner in friends, felt as if they were treating him differently because he was recently hospitalized. States that he felt they work nor in him, dismissing him ?like a crazy camron . States that this is causing conflict in his relationship. States overall however some improvement, I don't have dread in the morning any more . No SI/HI, no safety concerns. Sleep, appetite within normal limits. Willing to consider dose increase of medication. (2) LEIGHA (generalized anxiety disorder): Status: Acute Code(s): F41.1 - Generalized anxiety disorder Plan 1. Continue with current [facility] plan of care. 2. Increase fluoxetine to 20 mg daily. 3. Follow-up as per protocol. Patient educated on: diagnosis, medication risk/benefits and therapeutic strategies Informed Consent: understands Reason for contiued partial hosp. stay Substantial Risk for: inability to function and rapid decompensation Certification I certify that partial hospital treatment is medically necessary due to the symptoms and problems resulting from the patient's mental illness and the failure to treat the patient at the partial hospital level of care would likely result in the patient requiring inpatient psychiatric care which could not be prevented at a less intensive level of care. I spent minutes with the patient and/or on the patient floor today, greater than?50% of which was spent counseling/coordinating care. Discharge Plan Discharge Attending provider: Tyler Nweman Medications: New fluoxetine 20 mg capsule 20 mg PO DAILY Qty: 14 0RF Discontinued fluoxetine 10 mg Capsule 10 mg PO DAILY 30 Days Qty: 30 1RF No Action nicotine (polacrilex) 2 mg Gum 2 mg buccal Q2H PRN (Reason: Nicotine Cravings) 30 Days Qty: 100 0RF trazodone 50 mg Tablet 50 mg PO BEDTIME PRN (Reason: insomnia) 30 Days Qty: 30 1RF
--- NOTE | 2022-07-24 19:29 | P.PNPSP_ITS ---
Subjective Subjective Date of Service: 07/24/22 Reason For Visit: depression,anxiety Medical Problems Affecting Mental Status: No Interim History: Describes mood as good . Says less depressed. Tolerating increased fluoxetine dose well, wants to continue at this dose. No SI/HI, no safety concerns. Finding groups in [facility] helpful. Feels ready for discharge from [facility] today. Looking forward to spending [place] with his children. Going to [place] in several weeks to spend time with mother and sisters. Medication Compliance: Yes Side effects from medications: No Attending Groups: Yes Review of Systems Acute medical concerns: No Medical Review of Systems: unchanged Review of Systems Review of Systems Yes all other systems are reviewed and are negative Constitutional: Reports no additional constitutional complaints Mental Status Exam Mental Status Exam Narrative: NAD Patient Appearance: Well Grooomed Patient Orientation: Person, Place and Time Level of Consciousness: Appropriate Patient Behavior: Appropriate, Cooperative and Good Eye Contact Mood Description: Calm and Appropriate Affect Description: Appropriate Patient Cognition Impaired: No Ability to Follow Directions: Good Speech Pattern: Clear and Appropriate Memory Description: Intact Hallucinations: None Delusions: Not Present Thought Process: Intact Thought Content: positive for Intact Judgement: Good Diagnostics Vital Signs (24Hr): BMI result Body Mass Index 24.7 Assessment & Plan Assessment & Plan (1) MDD (major depressive disorder), recurrent severe, without psychosis: Status: Acute Code(s): F33.2 - Major depressive disorder, recurrent severe without psychotic features Assessment and Plan: Describes mood as good . Says less depressed. No anxiety. Tolerating increased fluoxetine dose well, wants to continue at this dose. No SI/HI, no safety concerns. Finding groups in [facility] helpful. States he has also opened up with several of his close friends, and they were supportive. Feels ready for discharge from [facility] today. Looking forward to spending [place] with his children. Going to [place] in several weeks to spend time with mother and sisters. (2) LEIGHA (generalized anxiety disorder): Status: Acute Code(s): F41.1 - Generalized anxiety disorder Plan 1. Continue with fluoxetine 20mg daily. 2. Patient appears stable for discharge from [facility] at this time. 3. Patient Follow-up with outpatient providers going forward. Patient educated on: medication risk/benefits and therapeutic strategies Informed Consent: understands Reason for contiued partial hosp. stay Substantial Risk for: stable for discharge Certification I certify that partial hospital treatment is medically necessary due to the symptoms and problems resulting from the patient's mental illness and the failure to treat the patient at the partial hospital level of care would likely result in the patient requiring inpatient psychiatric care which could not be prevented at a less intensive level of care. I spent minutes with the patient and/or on the patient floor today, gre ater than?50% of which was spent counseling/coordinating care. Discharge Plan Discharge Attending provider: Tyler Newman Additional Instructions: Pt reports he has a new patient appointment at [facility] on August 27, 2021. Office # [phone]. Medications: New fluoxetine 20 mg capsule 20 mg PO DAILY Qty: 30 0RF Discontinued fluoxetine 10 mg Capsule 10 mg PO DAILY 30 Days Qty: 30 1RF No Action nicotine (polacrilex) 2 mg Gum 2 mg buccal Q2H PRN (Reason: Nicotine Cravings) 30 Days Qty: 100 0RF trazodone 50 mg Tablet 50 mg PO BEDTIME PRN (Reason: insomnia) 30 Days Qty: 30 1RF Stand Alone Forms: Patient Portal Discharge page Patient Education: Depression (DC), Anxiety (GEN)
== END 2022-07-24 23:59 | disposition home or self-care (01) ==
LOC: HO.PHPA 08:45
PROVIDERS: Visit Provider Psychiatry & Neurology Psychiatry
DX: F33.2 Major depressive disorder, recurrent severe without psychotic features (principal); F41.1 Generalized anxiety disorder; Z79.899 Other long term (current) drug therapy
CPT/HCPCS: 80307; 90853

== ENCOUNTER 2023-05-29 09:18 | Outpatient (AMB) | payer BC, MEDICAID, SELFPAY ==
--- OUTSIDE RECORDS SUMMARY | 2023-05-29 09:20 | XMS_ITS | Continuity of Care Document ---
Author Name Unknown Organization [facility] Address [address] [place] [id number]- Care Team Providers Care Night Warehouse Selector Name Role Phone Not on Staff, PCP Primary Care Physician Unavail able Encounter [facility] Date(s): 12/23/20 - 12/23/[address] [address]- Encounter Diagnosis Cerumen impaction(Final) - 12/23/20 Discharge Disposition: A-D/C Home Attending Physician: Lulú Duarte MD Admitting Physician: Lulú Duarte MD Referring Physician: Not on Staff, Referring MD Allergies, Adverse Reactions, Alerts Substance Reaction Severity Status NKA Active Vital Signs Most recent to oldest [Reference Range]: 1 2 Oxygen Saturation [94-100 %] 100 % (12/23/20 3:30 PM) 99 % (12/23/20 2:18 PM) Pulse Rate [55-90 bpm] 69 bpm (12/23/20 3:30 PM) 61 bpm (12/23/20 2:18 PM) Blood Pressure [90-138/55-84 mm Hg] 147/ 86mm Hg *H* (12/23/20 3:30 PM) Respiratory Rate [16-30 br/min] 20 br/mi n (12/23/20 3:30 PM) Temperature [96.8-100.4 DegF] 98.6 DegF (12/23/20 3:30 PM) Mode of Delivery (Oxygen) Room air (12/23/20 3:30 PM) Room air (12/23/20 2:18 PM) Temperature Route Oral (12/23/20 3:30 PM)
--- OUTSIDE RECORDS SUMMARY | 2023-05-29 09:20 | XMS_ITS | Continuity of Care Document ---
Author Name Unknown Organization [facility] Address [address] [place] [address]- Care Team Providers Care Epic St[employer] Specialists Name Role Phone Not on Staff, PCP Primary Care Physician Unavail able Encounter [facility] Date(s): 08/27/22 - 09/26/22 [facility] [address]- Attending Physician: Dima Joshi Admitting Physician: Dima Joshi Referring Physician: AdmtrDima Allergies, Adverse Reactions, Alerts No Known Allergies Medications FLUoxetine 10 mg oral capsule Refills 0, Maintenance, 08/27/22 15:29:00 EST, Partial fill upon patient request if the prescription is for a schedule II opioid drug. Start Date: 08/27/22 Status: Ordered Nicotine 2 mg gum 0 Refills, Maintenance, 08/27/22 15:29:00 EST, Partial fill upon patient request if the prescription is for a schedule II opioid drug. Start Date: 08/27/22 Status: Ordered traZODone 50 mg oral tablet Refills 0, Maintenance, 08/27/22 15:29:00 EST, Partial fill upon patient request if the prescription is for a schedule II opioid drug. Start Date: 08/27/22 Status: Ordered Patient Care team information Care Team Personnel Name: Not on Staff, PCP Position: S Physician (General Medicine) Member Role: PCP Care Team Related Persons Name: TUCKER DARLING Address: home [address] [place] [id number]
--- OUTSIDE RECORDS SUMMARY | 2023-05-29 09:20 | XMS_ITS | Continuity of Care Document ---
Author Name Unknown Organization [facility] Address [address] [place] [address]- Care Team Providers Care Doll Wig Maker Rooted Hair Name Role Phone Not on Staff, PCP Primary Care Physician Unavail able Encounter [facility] Date(s): 07/15/22 - 09/26/22 [facility] [address]- Attending Physician: Ruth Ann Cueto MD Admitting Physician: Ruth Ann Cueto MD Allergies, Adverse Reactions, Alerts No Known Allergies [...] Related Persons Name: TUCKER DARLING Address: home [address] [place], [place] [id number]
--- OUTSIDE RECORDS SUMMARY | 2023-05-29 09:20 | XMS_ITS | Continuity of Care Document ---
Author Name Unknown Organization [facility] Address [address] [place] [address]- Care Team Providers Care Utility Aircrewman Name Role Phone Not on Staff, PCP Primary Care Physician Unavail able Encounter [facility] Date(s): 07/03/22 - 08/02/22 [facility]/[place] [address]- Allergies, Adverse Reactions, Alerts No Known Allergies Patient Care team information Care Team Personnel Name: Not on Staff, PCP Position: [facility] Physician (General Medicine) Member Role: PCP Care Team Related Persons Name: TUCKER DARLING Address: home [address] [place] [address]
[2023-05-29 10:02] VITALS: BP 120/62; PULSE 51; TEMP 36.7; O2SAT 98; BMI 25.8
--- NOTE | 2023-05-29 10:02 | MHC.OFFWIV ---
Intake Vital Signs 05/29/23 10:02 Height 5 ft 9 in Weight 175 lb BMI 25.8 BP 120/62 Blood Pressure Location Lt brachial Position Sitting Pulse 51 Pulse Source Pulse Oximeter Temp 98.1 F Temp Source Oral Pulse Oximetry (%) 98 Oxygen Delivery Method Room Air Intake Visit Reasons: [id number] Intake Note: Patient is here with dizziness on Wednesday, he also feels sweaty with the dizziness. , fell on the floor unnconscience, mouth feels dry, he's not drinking enough water. Patient also stated that he hit his head when he passed out last Wednesday. Patient Tobacco Use Status: Current everyday Tobacco user Allergies No Known Allergies Allergy (Verified 05/29/23 10:05) Do you need a note to return to daycare/school/sports/work: No HPI HPI Comments History of Present Illness Details This is a 32-year-old male who presents to the office today for sick visit. Patient complaining of multiple syncopal episodes over the past several months. One syncopal episode occurred in February while at a nightclub on vacation, the next episode occurred 6 days ago. He states there are usually several months in between his episodes. He states he gets clammy, diaphoretic, lightheaded and then blacks out. He denies any chest pain or shortness of breath prior to these episodes. He states there does not appear to be specific triggers. These do not happen with positional changes such as going from a lying to standing position. Patient states he believes it could be related to stress. His at bedside states that he had some psychiatric issues for which she was being seen at a clinic about a year ago. At this time, patient is completely asymptomatic. [facility] Medical History (Updated 07/13/22 @ 20:40 by Ayla Harrison) MDD (major depressive disorder), recurrent severe, without psychosis Social History Household Members: Significant Other and Children Housing: Apartment Do you presently have visiting nurse or other home services: No Patient Tobacco Use Status: Current everyday Tobacco user Tobacco use type: Cigarette Cigarette Packs Per Day: 0.5 Cigarettes Per Day: 10 Years Smoked: 4 e-Cigarette/Vaping Use: Currently Using Second Hand Smoke Exposure: Yes Substance Use Type: Marijuana service: No Sexual orientation: Straight/Heterosexual Review of Systems Const All systems reviewed & are unremarkable except as noted in HPI and below Reports no additional complaints Eyes Reports no additional complaints ENT Reports no additional complaints Card Reports no additional complaints Resp Reports no additional complaints GI Reports no additional complaints Reports no additional complaints Musc Reports no additional complaints Skin/Breast Reports system reviewed and no additional complaints, except as documented Neuro Reports no additional complaints Psych Reports no additional complaints Endo Reports no additional complaints Mega/Lymph Reports no additional complaints Aller/Immun Reports no additional complaints Physical Exam Vital Signs: Last Vital Signs Temp 98.1 F 05/29/23 10:02 Pulse 51 05/29/23 10:02 BP 120/62 05/29/23 10:02 Pulse Ox 98 05/29/23 10:02 Oxygen Delivery Method Room Air 05/29/23 10:02 BMI result Body Mass Index 25.8 Const Other: Vital signs reviewed. Constitutional: Non-toxic appearing. No acute distress. Well-developed and well-nourished. HEENT: Normocephalic and atraumatic. Moist mucous membranes. Skin: Warm and dry. No rashes or lesions noted. Neck: Full and painless range of motion. No cervical lymphadenopathy. Cardio: Mild bradycardia but regular rhythm. No murmurs, gallops, or rubs. No lower extremity edema. No JVD. Pulmonary: No respiratory distress. No accessory muscle usage. Clear to auscultation bilaterally without wheezing, crackles, or rhonchi. Gastrointestinal: Soft, nontender, and nondistended in all 4 quadrants. Musculoskeletal: Normal range of motion in joints throughout the body. No deformity or other signs of injury. Neuro: Alert and oriented x4. Cranial nerves 2-12 grossly intact. No focal deficits appreciated. Psych: Normal mood and affect. Results AMB Random Glucose (hemocue) AMB Random Glucose (hemocue) 83 mg/dL Last Edit by Eulalia Leonardo CMA on 05/29/23 10:45 Assessment & Plan Assessment & Plan (1) Syncope: Code(s): R55 - Syncope and collapse Plan I explained to the patient that there are multiple possible etiologies that could be causing his symptoms. The 1st concern would be hypoglycemic episodes though his states that she called the ambulance during 1 episode and his glucose was fine at that time. I recommended that the patient carry around snacks while at work as he states he does not usually eat much during the day. His POCT fingerstick glucose was 83 in the office today. He has not eaten yet today. The 2nd concern would be orthostatic hypotension though his symptoms do not seem to occur with positional changes. I also recommended that he increase his fluid and salt intake slightly. The 3rd concern would be a cerebrovascular event, carotid stenosis, or seizure the he denies any seizure-like activity. The 4th concern would be a cardiovsacular event such as an arrhythmia or ischemic event. An EKG was checked in the office today which showed sinus bradycardia at 58 beats per minute and early repolarization but was otherwise normal without acute ischemic changes or ST-T wave changes. The 5th concern would be a pulmonary etiology such as a pulmonary embolism, though patient is able to PERC ruled out. I explained to the patient that it is very difficult to diagnose any of these issues as he is not currently having any symptoms and I do not have the capabilities at the walk-in clinic. At this moment, patient is completely asymptomatic and neurologically intact. He was able to walk into the office without difficulty. He has not had any further syncopal episodes since 6 days ago in there are usually several months in between his episodes. I do not believe that patient has an emergent or life-threatening condition at this time. I feel safe with patient being discharged home as do him and his . I strongly encouraged the patient to establish care with a primary care physician so they could order certain testing such as carotid US, CT head, hemoglobin A1c etc. as well as make the proper referrals such as a cardiology referral for Holter monitor and TTE or neurology referral to EEG. I told the patient that if he were to develop another syncopal episode, he should proceed directly to the emergency room where they have more capabilities in the urethral to do more of a workup. Patient and his verbalized their understanding and they are in agreement with the plan. Orders: Orders AMB EKG-In Office Today R55 - Syncope and collapse AMB Random Glucose (hemocue) Today E16.2 - Hypoglycemia, unspecified Coding Level of Care Code New Pt Level 3 (42151) Diagnoses Syncope R55
== END 2023-05-29 10:59 | disposition home or self-care (01) ==
PROVIDERS: Visit Provider Physician Assistant Medical
DX: E16.2 Hypoglycemia, unspecified (principal); R55 Syncope and collapse
CPT/HCPCS: 82948; 99203

== ENCOUNTER 2023-09-15 10:15 | Outpatient (AMB) | payer BC, MEDICAID, SELFPAY ==
[2023-09-15 10:45] VITALS: BP 110/58; PULSE 64; O2SAT 98; BMI 26.8
--- NOTE | 2023-09-15 10:45 | MHC.PC.OV ---
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 They have relocated from [place] and have resided in the state for 5 years without having a primary care physician. 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 Not seen a primary care in nearly 5 years. Has a past medical history significant for anxiety and depression. Concerns--> reports having near syncopal episodes on a intermittent occasion over last few months. They usually happen if he has not been eating well and has smoked marijuana. MDD: Has had history major depressive disorder was on medication has stopped medication and feels his depression is stable. Vaccine: Needs flu vaccine though declines today , UTD with Tdap. [facility] Medical History MDD (major depressive disorder), recurrent severe, without psychosis Family History (Updated 09/15/23 @ 11:02 by [place] House PA-C) Mother Depression Type II diabetes mellitus High cholesterol Father No problems noted. Sister Polycythemia Social History (Updated 09/15/23 @ 11:03 by [place] House PA-C) Household Members: Significant Other and Children Housing: Apartment Do you presently have visiting nurse or other home services: No Alcohol intake: current Alcohol intake frequency: holidays/special occasions only Tobacco use type: Smokeless Tobacco e-Cigarette/Vaping Use: Currently Using Second Hand Smoke Exposure: Yes Substance Use Type: Marijuana service: No Current occupational status: employed Current occupation: [employer] Sexual orientation: Straight/Heterosexual Cognitive needs: No Hearing needs: No Vision needs: No Questionnaire PHQ-9 Over the last 2 weeks, how often have you been bothered by any of the following problems? 1. Little interest or pleasure in doing things: not at all 2. Feeling down, depressed, or hopeless: not at all 3. Trouble falling or staying asleep, or sleeping too much: not at all 4. Feeling tired or having little energy: not at all 5. Poor appetite or overeating: not at all 6. Feeling bad about yourself - or that you are a failure or have let yourself or your family down: not at all 7. Trouble concentrating on things, such as reading the newspaper or watching television: not at all 8. Moving or speaking so slowly that other people could have noticed. Or the opposite - being so fidgety or restless that you have been moving around a lot more than usual: not at all 9. Thoughts that you would be better off or of hurting yourself in some way: not at all Total score: 0 Depression Screening Interpretation: Negative Depression Screening Done: Yes [id number] - PHQ-9 Billing: Yes Source: Developed by Drs. Leo Rose, Lili Olson, Pedro Luis Garcia and colleagues, with an educational frankie from [employer]. Thrive Questionnaire Date Thrive assessed: 09/15/23 I am a: Patient What is your living situation today?: I have a steady place to live Within the past 12 months, did the food you bought not last and you didn't have the money to get more?: Never true Within the past 12 months, did you worry whether your food would run out before you got money to buy more?: Never true Do you have trouble paying for medicines?: No Do you have trouble getting transportation to medical appointments?: No Do you have trouble paying your heating and electricity bill?: No Do you have trouble taking care of your child, family member or friend?: No Do you have trouble with day-to-day activities such as bathing, preparing meals, shopping, managing finances, etc.?: No Are you currently unemployed and looking for a job?: No Are you interested in more education?: No Please select the resources that you would like help with: None Currently or been in a relationship where the following occur: no concerns reported THRIVE Score: 0 AUDIT C Alcohol Use Questionnaire (AUDIT-C) 1. How often do you have a drink containing alcohol?: Monthly or less 2. How many drinks containing alcohol do you have on a typical day when you are drinking?: 3 or 4 3. How often do you have six or more drinks on one occasion?: Never Total Score: 2 LEIGHA-7 AMB Questionnaire LEIGHA-7 Date LEIGHA - 7 assessed: 09/15/23 Feeling nervous, anxious, or on edge: 1 = Several days Not being able to stop or control worryin = More than half the days Worrying too much about different things: 2 = More than half the days Trouble relaxin = More than half the days Being so restless that it is hard to sit still: 1 = Several days Becoming easily annoyed or irritable: 1 = Several days Feeling afraid as if something awful might happen: 3 = Nearly every day Total LEIGHA-7 score (0-4 normal; 5-9 mild; 10-14 moderate; 15-21 severe): 12 Source: Developed by Drs. Leo Rose, Lili Olson, Pedro Luis Garcia and colleagues, with an educational frankie from [employer]. LEIGHA-7 Assessment Billing LEIGHA-7 Assessment Tool: LEIGHA-7 Assessment 43795 Review of Systems Const Denies excessive sweating, Denies fatigue and Denies headache(s) Eyes Denies loss of vision ENT Denies vertigo, Denies dizziness, Denies headache(s) and Denies sore throat Card Denies chest pain, Denies leg edema and Denies lightheadedness Resp Denies cough, Denies hemoptysis and Denies wheezing GI Denies abdominal pain, Denies melena, Denies constipation, Denies diarrhea and Denies vomiting Denies dysuria, Denies urinary frequency and Denies urinary urgency Musc Denies arthralgias, Denies joint swelling, Denies numbness and Denies tingling Skin/Breast Denies rash and Denies skin ulcer Neuro Denies Abnormal speech present, Denies behavioral changes, Denies vertigo, Denies dizziness, Denies headache(s), Denies loss of vision, Denies memory loss, Denies numbness and Denies tingling Psych Denies anxiety, Denies behavioral changes, Denies depression, Denies memory loss and Denies panic attacks Endo Denies excessive sweating, Denies fatigue, Denies flushing, Denies polydipsia and Denies polyuria Mega/Lymph Denies easy bleeding and Denies easy bruising Aller/Immun Denies wheezing Physical exam (Primary Care) Vital Signs: Last Vital Signs Pulse 64 09/15/23 10:45 BP 110/58 L 09/15/23 10:45 Pulse Ox 98 09/15/23 10:45 Oxygen Delivery Method Room Air 09/15/23 10:45 BMI result Body Mass Index 26.8 Tobacco/Smoking Status: Tobacco use Status Tobacco use date assessed 09/15/23 09/15/23 10:56 Patient Tobacco Use Status 09/15/23 11:03 Tobacco use type Smokeless Tobacco 09/15/23 11:03 e-Cigarette/Vaping Use Currently Using 09/15/23 11:03 PHQ-9: PHQ-9 Score PHQ-9: Total score 0 09/15/23 11:03 Depression Screening Interpretation: Negative Thrive Assessment: Date of Thrive Assessment Date Thrive assessed 09/15/23 09/15/23 10:56 Currently or been in a relationship where the following occur: no concerns reported Const General: healthy appearing, no acute distress, alert and awake Nutritional Appearance: well nourished Orientation/consciousness: oriented to person, oriented to place and oriented to time HENNY Head: Yes normocephalic Ears: TM's normal bilaterally General nose exam: Normal nasal mucous membranes and turbinates present Face and sinus: No sinus tenderness Mouth: Normal oral and palatal mucosa present and tongue normal Teeth and gingiva: dentition normal and gingiva normal Throat: Yes posterior oropharynx normal, Yes tonsils normal and Yes uvula midline Eyes Conjunctivae: conjunctivae normal Sclerae: sclerae normal Pupils: Equal, round and reactive pupils present EOM: EOMs intact bilaterally Direct Ophthalmoscopy: No no photophobia Neck Neck: Yes no lymphadenopathy and Yes no JVD Thyroid: Thyroid normal Carotids: no bruits Chest Chest palpation & inspection: no tenderness Resp Effort & Inspection: normal respiratory effort and not tachypneic Auscultation: no crackles, no rales, no rhonchi and no wheezes Cardio Jugular venous distension: no JVD Rate: regular rate Rhythm: regular rhythm Heart sounds: no murmurs and normal S1 and S2 Bruits: no carotid bruits Peripheral pulses: Peripheral pulses 2+ throughout GI Inspection: Yes normal to inspection, No abdominal wall ecchymosis and No visible herniation Palpation (GI): Soft to palpation, nontender, no hepatomegaly and no splenomegaly Auscultation: normal bowel sounds General: Yes no CVA tenderness Back/Spine/Pelvis Back: no CVA tenderness and No back tenderness Cervical Spine: cervical ROM normal Thoracic/Lumbar Spine: thoracic and lumbar spine normal to inspection, straight leg raise negative bilaterally, No thoraco-lumbar ROM limited and No lumbar spinal tenderness Skin General skin exam: no rashes or lesions noted and dry skin Lesions: no lesions Rashes: no rashes Wounds: no wounds Neuro General: oriented to person, oriented to place and oriented to time Cranial nerves: Yes Equal, round and reactive pupils present Cognition (Neuro): normal cognition Speech: No Abnormal speech present Gait exam (Neuro): Normal gait present Motor exam (neuro): no tremor noted Extrem Right upper extremity: full ROM Left upper extremity: full ROM Right lower extremity: full ROM; no edema Left lower extremity: full ROM; no edema Psych Appearance: grossly normal Mental Status: mental status grossly normal Speech and movement: Normal speech and movement present Affect: normal affect Attitude: cooperative Thought process: Normal thought process present Assessment and Plan Assessment & Plan (1) MDD (major depressive disorder), recurrent severe, without psychosis: Code(s): F33.2 - Major depressive disorder, recurrent severe without psychotic features Plan: Patient's PHQ-9 score 0. He does have a history of depression though feels it is stable at this time. He has not interested in any cognitive behavioral therapy (2) Hypoglycemia: Code(s): E16.2 - Hypoglycemia, unspecified Plan: Patient does report having hypoglycemic symptoms especially if he has not eaten and awhile and smokes marijuana. Advised on having 3 meals a day and snacks in between. (3) Screening for diabetes mellitus (DM): Code(s): Z13.1 - Encounter for screening for diabetes mellitus (4) LEIGHA (generalized anxiety disorder): Code(s): F41.1 - Generalized anxiety disorder Plan: Patient's LEIGHA-7 score positive for anxiety which has been existing condition for him. Was on SSRI therapy in the past though felt he did not need medication. He feels his anxiety is stable at this time. Orders: Orders Comprehensive [place]. Panel Fast 09/15/23 Z13.1 - Encounter for screening for diabetes mellitus Complete Blood Count no Diff 09/15/23 E16.2 - Hypoglycemia, unspecified Coding Level of Care Code New Pt Level 4 (53680) Diagnoses MDD (major depressive disorder), recurrent severe, without psychosis F33.2 Hypoglycemia E16.2 Screening for diabetes mellitus (DM) Z13.1 LEIGHA (generalized anxiety disorder) F41.1 Additional Codes LEIGHA-7 Assessment Billing - LEIGHA-7 Assessment Tool: LEIGHA-7 Assessment 32181 ([id number])
== END 2023-09-15 11:15 | disposition home or self-care (01) ==
PROVIDERS: PCP Physician Assistant; Visit Provider Physician Assistant
DX: E16.2 Hypoglycemia, unspecified (principal); F33.2 Major depressive disorder, recurrent severe without psychotic features; Z13.1 Encounter for screening for diabetes mellitus; F41.1 Generalized anxiety disorder
CPT/HCPCS: 99214

== ENCOUNTER 2023-12-28 07:01 | Outpatient (REF) | payer BC, MEDICAID, SELFPAY ==
[2023-12-28 08:01] LABS: Hematocrit 43.8 % (42.0-52.0); Hemoglobin 15.5 g/dl (14.0-18.0); Mean Corpuscular HGB Conc 35.4 g/dl (31.0-36.0); Mean Corpuscular Hemoglobin 33.5 pg (27.0-33.0); Mean Corpuscular Volume 94.6 fL (80.0-98.0); Mean Platelet Volume 9.5 fL (9.4-12.4); Platelet Count 359 X10*3/uL (160-400); Red Blood Count 4.63 X10*6/uL (4.60-5.80); Red Cell Distribution Width 13.5 % (11.0-16.0); White Blood Count 6.5 X10*3/uL (4.8-10.8)
[2023-12-28 08:28] LABS: Alanine Aminotransferase 11 U/L (0-40); Albumin Level 4.5 g/dL (3.5-5.0); Alkaline Phosphatase 60 U/L (39-117); Anion Gap 15 (12-20); Aspartate Amino Transferase 16 U/L (5-37); Blood Urea Nitrogen 17 mg/dL (9-16); Calcium 10.1 mg/dL (8.4-10.2); Carbon Dioxide 27 mmol/L (22-29); Chloride 104 mmol/L (96-108); Estimated Glomerular Filt Rate > 60; Glucose Fasting 98 mg/dL (60-99); Sodium 142 mmol/L (135-145); Total Protein 7.6 g/dL (6.5-8.0)
== END 2023-12-28 07:02 | disposition home or self-care (01) ==
LOC: HO.LAB 07:01
PROVIDERS: PCP Physician Assistant; Visit Provider Physician Assistant
DX: E16.2 Hypoglycemia, unspecified (principal); Z13.1 Encounter for screening for diabetes mellitus
CPT/HCPCS: 36415; 80053; 85027

== ENCOUNTER 2023-12-30 09:18 | Outpatient (AMB) | payer BC, MEDICAID, SELFPAY ==
[2023-12-30 09:26] VITALS: BP 130/78; PULSE 86; O2SAT 97; BMI 25.0
--- NOTE | 2023-12-30 09:26 | A.OFFPC_ITS ---
Vital Signs 12/30/23 09:26 Height 5 ft 9 in Weight 169 lb 8 oz BMI 25.0 BP 130/78 Blood Pressure Location Lt brachial Position Sitting Pulse 86 Pulse Source Pulse Oximeter Pulse Oximetry (%) 97 Oxygen Delivery Method Room Air Intake Visit Reasons: PHYSICAL Intake Note: Patient is here today for a physical. 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 Has a past medical history significant for anxiety and depression. Concern--> patient partner does report patient does snore and has apneic episodes at night. Also does report profusely sweating during sleep. This has been evident over the last few months. PLAN: Will send for sleep study to evaluate for a sleep disorder. History of syncopal episodes: Has had no further syncopal episodes. Has been trying to eat more regularly. They usually happen if he has not been eating well and has smoked marijuana. Has noted weight loss since last office visit in does attributes this to a physically demanding job MDD: Has had history major depressive disorder was on medication has stopped medication and feels his depression is stable. Vaccine: UTD with Tdap. decline covid vaccine Laboratory Tests 05/29/23 12/28/23 10:43 07:11 RBC 4.63 Creatinine 0.96 Random Glu (Clinic ) 83 Fasting Glucose 98 [facility] Medical History MDD (major depressive disorder), recurrent severe, without psychosis Family History Mother Depression Type II diabetes mellitus High cholesterol Father No problems noted. Sister Polycythemia Social History Household Members: Significant Other and Children Housing: Apartment Do you presently have visiting nurse or other home services: No Alcohol intake: current Alcohol intake frequency: holidays/special occasions only Tobacco use type: Smokeless Tobacco e-Cigarette/Vaping Use: Currently Using Second Hand Smoke Exposure: Yes Substance Use Type: Marijuana service: No Current occupational status: employed Current occupation: [employer] Sexual orientation: Straight/Heterosexual Cognitive needs: No Hearing needs: No Vision needs: No Questionnaire Thrive Questionnaire Date Thrive assessed: 09/15/23 LEIGHA-7 AMB Questionnaire LEIGHA-7 Date LEIGHA - 7 assessed: 09/15/23 Source: Developed by Drs. Leo Rose, Lili Olson, Pedro Luis Garcia and colleagues, with an educational frankie from [employer] Review of Systems Const Details: + night sweats Denies body aches, Denies chills, Reports excessive sweating, Denies fatigue, Denies fever(s) and Denies headache(s) Eyes Denies blurry vision ENT Denies dysphagia, Denies vertigo, Denies dizziness, Denies headache(s), Denies hearing loss and Denies tinnitus Card Denies chest pain, Denies chest pain with activity, Denies syncope, Denies irregular heart rhythm and Denies dyspnea Resp Denies chest congestion, Denies cough, Denies hemoptysis, Denies dyspnea and Denies wheezing GI Denies abdominal pain, Denies melena, Denies hematochezia, Denies coffee ground emesis, Denies dysphagia, Denies diarrhea, Denies nausea and Denies vomiting Denies difficulty urinating, Denies dysuria, Denies urinary frequency, Denies urinary hesitancy and Denies urinary urgency Musc Denies arthralgias, Denies limited range of motion, Denies muscle cramps and Denies muscle weakness Skin/Breast Denies rash and Denies skin ulcer Neuro Denies Abnormal speech present, Denies confusion, Denies vertigo, Denies dizziness, Denies syncope, Denies headache(s), Denies memory loss and Denies seizure-like activity Psych Denies anxiety, Denies confusion, Denies depression, Denies memory loss, Denies panic attacks and Denies paranoia Endo Reports excessive sweating, Denies fatigue, Denies flushing, Denies polydipsia and Denies polyuria Aller/Immun Denies wheezing Physical exam (Primary Care) Vital Signs: Last Vital Signs Pulse 86 12/30/23 09:26 BP 130/78 12/30/23 09:26 Pulse Ox 97 12/30/23 09:26 Oxygen Delivery Method Room Air 12/30/23 09:26 BMI result Body Mass Index 25.0 Tobacco/Smoking Status: Tobacco use Status Tobacco use date assessed 09/15/23 12/30/23 09:27 Tobacco use type Smokeless Tobacco 12/30/23 09:27 e-Cigarette/Vaping Use Currently Using 12/30/23 09:27 Thrive Assessment: Date of Thrive Assessment Date Thrive assessed 09/15/23 12/30/23 09:27 Const General: cooperative, comfortable, no acute distress, alert and awake; No confusion Orientation/consciousness: oriented to person, oriented to place, patient oriented x3 and No confusion HENMT Head: Yes normocephalic Ears: external ears normal and TM's normal bilaterally Face and sinus: No sinus tenderness Mouth: Normal oral and palatal mucosa present and tongue normal Teeth and gingiva: dentition normal and gingiva normal Throat: Yes posterior oropharynx normal, Yes tonsils normal and Yes uvula midline Eyes Conjunctivae: conjunctivae normal Sclerae: sclerae normal Pupils: Equal, round and reactive pupils present EOM: EOMs intact bilaterally Direct Ophthalmoscopy: No no photophobia Neck Neck: Yes no lymphadenopathy, No tender and Yes no JVD Thyroid: Thyroid normal Carotids: no bruits Chest Chest palpation & inspection: no tenderness Resp Effort & Inspection: normal respiratory effort, no audible wheezes, not labored and no stridor Auscultation: no crackles, no rales, no rhonchi and no wheezes Cardio Jugular venous distension: no JVD Rate: regular rate, not bradycardic and not tachycardic Rhythm: regular rhythm Bruits: no carotid bruits Peripheral pulses: Peripheral pulses 2+ throughout GI Inspection: Yes normal to inspection, No abdominal wall ecchymosis and No visible herniation Palpation (GI): Soft to palpation, nontender, no guarding, not rigid and No hepatosplenomegaly present Auscultation: normoactive bowel sounds General: Yes no CVA tenderness Back/Spine/Pelvis Back: no CVA tenderness and No back tenderness Cervical Spine: cervical ROM normal Thoracic/Lumbar Spine: thoracic and lumbar spine normal to inspection, straight leg raise negative bilaterally, No thoraco-lumbar ROM limited and No lumbar spinal tenderness Skin Lesions: no lesions Rashes: no rashes Wounds: no wounds Neuro General: oriented to person, oriented to place, patient oriented x3, CN's II-XI intact bilaterally and No confusion Cranial nerves: Yes Equal, round and reactive pupils present and Yes Normal accommodation reflex present Cognition (Neuro): normal cognition Speech: No Abnormal speech present Gait exam (Neuro): Normal gait present Motor exam (neuro): 5/5 motor strength present throughout Extrem Right upper extremity: full ROM; no cyanosis Left upper extremity: full ROM; no cyanosis Right lower extremity: no edema Left lower extremity: no edema Psych Appearance: grossly normal Mental Status: mental status grossly normal Affect: normal affect Attitude: cooperative Thought process: Normal thought process present Assessment and Plan Assessment & Plan (1) Annual physical exam: Code(s): Z00.00 - Encounter for general adult medical examination without abnormal findin gs (2) MDD (major depressive disorder), recurrent severe, without psychosis: Code(s): F33.2 - Major depressive disorder, recurrent severe without psychotic features Plan: Patient's PHQ-9 score 0. He does have a history of depression though feels it is stable at this time. He has not interested in any cognitive behavioral therapy (3) Screening for diabetes mellitus (DM): Code(s): Z13.1 - Encounter for screening for diabetes mellitus (4) LEIGHA (generalized anxiety disorder): Code(s): F41.1 - Generalized anxiety disorder Plan: Patient's LEIGHA-7 score positive for anxiety which has been existing condition for him. Was on SSRI therapy in the past though felt he did not need medication. He feels his anxiety is stable at this time. (5) LORE (obstructive sleep apnea): Code(s): G47.33 - Obstructive sleep apnea (adult) (pediatric) Plan: Patient's significant other reports patient does have apneic episodes and snores very loudly. Also is sweating profusely at night during sleep. Will send for sleep study test to evaluate for obstructive sleep apnea. Orders: Orders RT home sleep study Today G47.33 - Obstructive sleep apnea (adult) (pediatric) Comprehensive [place]. Panel Fast 11 Months Z13.1 - Encounter for screening for diabetes mellitus Coding Level of Care Code Est Pt Prev Care 18-39y([id number]) Diagnoses Annual physical exam Z00.00 MDD (major depressive disorder), recurrent severe, without psychosis F33.2 Screening for diabetes mellitus (DM) Z13.1 LEIGHA (generalized anxiety disorder) F41.1 LORE (obstructive sleep apnea) G47.33
== END 2023-12-30 10:03 | disposition home or self-care (01) ==
LOC: HO.HMGH 09:18
PROVIDERS: PCP Physician Assistant; Visit Provider Physician Assistant
DX: Z00.00 Encounter for general adult medical examination without abnormal findings (principal); F33.2 Major depressive disorder, recurrent severe without psychotic features; Z13.1 Encounter for screening for diabetes mellitus; F41.1 Generalized anxiety disorder; G47.33 Obstructive sleep apnea (adult) (pediatric)
CPT/HCPCS: 99395